=== PATIENT | male | born 1960 | race Caucasian/White ===

== ENCOUNTER → 2021-11-03 13:52 | Outpatient (BNVA) | payer MEDICARE, MEDICAID, SELFPAY | PROVIDERS: Family Provider Nurse Practitioner Family; PCP Nurse Practitioner Family; Referring Provider Nurse Practitioner Family; Visit Provider Internal Medicine | DX: E11.59 Type 2 diabetes mellitus with other circulatory complications (principal); E11.40 Type 2 diabetes mellitus with diabetic neuropathy, unspecified; E78.2 Mixed hyperlipidemia; I25.10 Atherosclerotic heart disease of native coronary artery without angina pectoris; F17.210 Nicotine dependence, cigarettes, uncomplicated; Z79.84 Long term (current) use of oral hypoglycemic drugs; Z79.4 Long term (current) use of insulin | CPT/HCPCS: 99204 ==

== ENCOUNTER → 2022-01-19 10:27 | Outpatient (BNVA) | payer MEDICARE, OTHER, MEDICAID, SELFPAY | PROVIDERS: Family Provider Nurse Practitioner Family; PCP Nurse Practitioner Family; Visit Provider Internal Medicine Critical Care Medicine | DX: J44.9 Chronic obstructive pulmonary disease, unspecified (principal); F17.210 Nicotine dependence, cigarettes, uncomplicated; F31.9 Bipolar disorder, unspecified | CPT/HCPCS: 99204 ==

== ENCOUNTER → 2022-02-02 10:16 | Outpatient (BNVA) | payer MEDICARE, OTHER, MEDICAID, SELFPAY | PROVIDERS: Family Provider Nurse Practitioner Family; PCP Nurse Practitioner Family; Visit Provider Internal Medicine | DX: E11.40 Type 2 diabetes mellitus with diabetic neuropathy, unspecified (principal); E11.59 Type 2 diabetes mellitus with other circulatory complications; E11.649 Type 2 diabetes mellitus with hypoglycemia without coma; I25.10 Atherosclerotic heart disease of native coronary artery without angina pectoris; E78.2 Mixed hyperlipidemia; Z79.4 Long term (current) use of insulin; Z79.84 Long term (current) use of oral hypoglycemic drugs; F17.210 Nicotine dependence, cigarettes, uncomplicated | CPT/HCPCS: 99214 ==

== ENCOUNTER 2022-03-10 09:10 | Outpatient (CLI) | payer MEDICARE, OTHER, MEDICAID, SELFPAY ==
--- NOTE | 2022-03-10 10:00 | CT_ITS ---
WS: [id number] LDCT LUNG CANCER SCREENING TECHNIQUE: Noncontrast CT of the chest with coronal and sagittal reformatted images. CLINICAL INFORMATION: Lung cancer screening COMPARISON: None. DLP: 81.39 mGy.cm DIvol: Mean CTDIvol: 1.60 (mGy) All CT scans at [facility] use at least one of these dose optimization techniques: automat ed exposure control; mA and/or kV adjustment per patient size (includes targeted exams where dose is matched to clinical indication); or iterative reconstruction. FINDINGS: Moderate to advanced chronic emphysematous changes. A few calcified granulomas. Patchy infiltrates in the LEFT greater than RIGHT lower lobes. Recommend correlation for pneumonitis. No focal consolidati on pleural fluid. Normal caliber thoracic aorta. No mediastinal or hilar lymphadenopathy. No axillary lymphadenopathy. Normal GE junction. Adrenal glands are normal. Hypertrophic changes thoracic spine. Mild thoracic cur ve. Partially visualized hepatomegaly. Adrenal glands are normal. CT/CT lung screening [id number] IMPRESSION: Small amount of patchy nodular infiltrates LEFT greater than RIGHT lung bases. Correlation for infectious or inflammatory pneumonitis. LUNG-RADS: 2S-Benign Appearance or Behavior with Significant Findings FOLLOW UP: 12 Month: Continue annual screening with LDCT
== END 2022-03-10 09:11 | disposition home or self-care (01) ==
LOC: RAD 09:11
PROVIDERS: Family Provider Nurse Practitioner Family; PCP Nurse Practitioner Family; Visit Provider Internal Medicine Critical Care Medicine
DX: Z12.2 Encounter for screening for malignant neoplasm of respiratory organs (principal); F17.210 Nicotine dependence, cigarettes, uncomplicated
CPT/HCPCS: 71271

== ENCOUNTER 2022-03-15 08:22 | Outpatient (CLI) | payer MEDICARE, OTHER, MEDICAID, SELFPAY | END 2022-03-15 08:23 | disposition home or self-care (01) | LOC: RT 08:22 | PROVIDERS: PCP Nurse Practitioner Family; Visit Provider Internal Medicine Critical Care Medicine | DX: Z12.2 Encounter for screening for malignant neoplasm of respiratory organs (principal); F17.210 Nicotine dependence, cigarettes, uncomplicated | CPT/HCPCS: 94060; 94729; J7613 ==

== ENCOUNTER 2022-04-03 18:29 | Emergency (ER) | payer MEDICARE, OTHER, MEDICAID, SELFPAY ==
[2022-04-03 18:33] VITALS: BP 163/85; PULSE 101; RESP 20; TEMP 38.7; O2SAT 91; BMI 34.5
--- NOTE | 2022-04-03 19:13 | ED_ITS ---
HPI - SOB/Dyspnea General: Chief Complaint: Fever Stated Complaint: SOB Time Seen by Provider: 04/03/22 19:11 Source: patient Mode of arrival: ambulatory Limitations: no limitations History of Present Illness: HPI Narrative: See nursing assessment. Patient states he has had a chronic cough for about a month. States cough is productive of clear sputum. Started running fever today. States he has a occasional headache from coughing. He reports that he took albuterol nebulizer prior to arrival. He has not taken anything for his fever. Past medical history includes coronary artery disease, type 2 diabetes mellitus insulin-dependent. Patient has chronic bronchitis. Patient is allergic to Zyprexa, nitrous oxide, adhesive tape. Associated symptoms: Reports chest congestion and fever(s); Deny abdominal pain, chest pain, nausea, palpitations or vomiting Review of Systems Const: Reports: fever(s) and body aches; Denies: chills Eyes: Denies: change in vision ENMT: Denies: throat pain Card: Denies: chest pain or palpitations Resp: Reports: dyspnea, productive cough (Clear sputum), wheezing and chest congestion GI: Denies: abdominal pain, nausea or vomiting : Denies: flank pain Musc: Denies: neck pain or back pain Skin/Breast: Denies: rash or pruritus Neuro: Reports: headache(s) (Frontal headache from coughing.); Denies: numbness in extremities Psych: Denies: anxiety Kenneth/Lymph: Denies: enlarged lymph nodes PFSH ED PFSH: Medical History Arthritis of multiple sites Bipolar affective disorder Cervical stenosis of spinal canal Chronic hyponatremia Chronic obstructive pulmonary disease, unspecified Cigarette nicotine dependence with nicotine-induced disorder Essential (primary) hypertension Fibromyalgia GERD without esophagitis Macrocytosis Male erectile dysfunction, unspecified Multilevel degenerative disc disease DEBI on CPAP Surgical History History of rotator cuff surgery bilateral Hx of release of tendon right index finger Family History Father , [place] CAD (coronary artery disease) Mother CAD (coronary artery disease) Dementia Alzheimers Unknown Hypertension first degree relatives Social History Smoking and tobacco status: current every day smoker (1.5 ppd) cigarettes Packs smoked per day: 1.5 Years cigarettes smoked: 48 [ Other cigarette details: HX of 2-5 ppd] Alcohol intake: current Lives independently: Yes Household members: spouse and children Marital status: Current occupation: disabled Pets and animals: Yes Pets & animals: dog(s) History of recent travel: No Current gender identity: Male Physical Exam Const: COMMON NORMALS: no acute distress, patient oriented x3, no limitations and well nourished GENERAL APPEARANCE: cooperative OTHER: Temperature 101.7 HENMT: COMMON NORMALS: normocephalic and atraumatic HEAD & SCALP: normocephalic and atraumatic FACE & SINUS: normal facial exam Eye: COMMON NORMALS: EOMs intact bilaterally Neck/C-Spine: COMMON NORMALS: full ROM, no lymphadenopathy, supple and no meningeal signs GENERAL: Yes normal visual inspection Lymph: LYMPHATIC: no lymphadenopathy noted Chest: COMMONS NORMALS: normal inspection of the chest and normal palpation of entire chest wall CHEST: No Ecchymosis present and No rash Resp: COMMON NORMALS: normal respiratory effort and No retractions EFFORT & INSPECTION: No respiratory distress OTHER: Mild expiratory wheezes bilaterally. Mild rhonchi in the bases bilaterally. Cardio: COMMON NORMALS: regular rate, regular rhythm and Peripheral pulses 2+ throughout JUGULAR VENOUS DISTENTION: no JVD RATE: regular rate RHYTHM: regular rhythm PERIPHERAL PULSES: Peripheral pulses 2+ throughout GI: COMMON NORMALS: Normal to inspection, nondistended, normoactive bowel sounds present and non-tender : COMMON NORMALS: Yes no CVA tenderness BLADDER/KIDNEY EXAM: Yes no CVA tenderness Back/Pelvis: COMMON NORMALS: no CVA tenderness Extremity: COMMON NORMALS: normal to inspection, full ROM and capillary refill normal Neuro: COMMON NORMALS: patient oriented x3, CN's II-XII intact bilaterally, no focal motor deficits and no sensory deficits noted MENINGEAL SIGNS: Yes no meningeal signs Psych: COMMON NORMALS: mental status grossly normal and Normal thought process present THOUGHT PROCESS: Normal thought process present Skin: COMMON NORMALS: no rashes or lesions noted and no wounds GENERAL SKIN EXAM: no rashes or lesions noted Course Vital Signs: Vital signs: Vital Signs Temperature 101.7 F H 04/03/22 18:33 Pulse Rate 101 H 04/03/22 20:47 Respiratory Rate 18 04/03/22 20:47 Blood Pressure 138/79 04/03/22 20:47 Pulse Oximetry 98 04/03/22 20:47 Oxygen Delivery Me thod 04/03/22 20:47 MDM - SOB/Dyspnea Medical Decision Making Pneumonia versus influenza versus COVID Lactic acid is normal. 2019: bp 136/79; pulse oximetry 92% on room air. COVID and flu test were negative. Chest x-ray essentially normal. Patient likely having COPD exacerbation with associated acute bronchitis. Due to his fever, will place patient on IV antibiotics today. Patient offered admission due to his ox saturation in the low 90s. Patient declined admission and wants t o go home. He states he has plenty medication for his nebulizer. He agreed to hold on smoking. Lab Data 04/03/22 19:35 04/03/22 19:35 Labs/Radiology: Radiology Impressions Chest X-Ray 04/03/22 19:21 IMPRESSION: 1. No acute cardiopulmonary process. 2. Incidental/nonacute findings are listed in the report. Laboratory Results WBC 12.2 10^3/uL (4.0-10.0) H 04/03/22 19:35 RBC 4.90 10^6/uL (4.1-5.3) 04/03/22 19:35 Hgb 15.8 g/dL (11.7-16.6) 04/03/22 19:35 Hct 45.7 % (42.0-52.0) 04/03/22 19:35 MCV 93.3 fl (80-94) 04/03/22 19:35 MCH 32.2 pg (28.0-34.0) 04/03/22 19:35 MCHC 34.6 g/dL (30.0-36.0) 04/03/22 19:35 RDW 13.2 % (12.1-15.1) 04/03/22 19:35 Plt Count 214 10^3/cmm (130-400) 04/03/22 19:35 MPV 8.0 fL (7.4-10.4) 04/03/22 19:35 Neut % (Auto) 79.9 % 04/03/22 19:35 Lymph % (Auto) 10.8 % 04/03/22 19:35 [place] % (Auto) 7.3 % 04/03/22 19:35 Eos % (Auto) 0.7 % 04/03/22 19:35 Baso % (Auto) 0.4 % 04/03/22 19:35 Neut # (Auto) 9.74 10^3/uL (1.8-7.7) H 04/03/22 19:35 Lymph # (Auto) 1.3 10^3/uL (0.8-4.8) 04/03/22 19:35 [place] # (Auto) 0.9 10^3/uL (0.2-0.9) 04/03/22 19:35 Eos # (Auto) 0.1 10^3/uL (0.0-0.8) 04/03/22 19:35 Baso # (Auto) 0.1 10^3/uL (0.0-0.1) 04/03/22 19:35 Nucleated RBC % (auto) 0 % 04/03/22 19:35 Nucleated RBCs # 0.0 /100WBC 04/03/22 19:35 Sodium 127 mmol/L (136-145) L 04/03/22 19:35 Potassium 3.8 mmol/L (3.5-5.1) 04/03/22 19:35 Chloride 93 mmol/L (98-107) L 04/03/22 19:35 Carbon Dioxide 23 mmol/L (22-29) 04/03/22 19:35 Anion Gap 14.8 (5-19) 04/03/22 19:35 BUN 8 mg/dL (8-23) 04/03/22 19:35 Creatinine 0.8 mg/dL (0.7-1.2) 04/03/22 19:35 GFR Calculation 98.6 mL/min (90-130) 04/03/22 19:35 Glucose 231 mg/dL (65-115) H 04/03/22 19:35 Calculated Osmolality 270 mOsm/kg (285-295) L 04/03/22 19:35 Lactic Acid 1.6 mmol/L (0.5-2.2) 04/03/22 19:35 Calcium 9.5 mg/dL (8.5-10.5) 04/03/22 19:35 Influenza Type A Ag negative (Negative) 04/03/22 19:35 Influenza Type B Ag negative (Negative) 04/03/22 19:35 SARS-CoV-2 Ag (Rapid) Negative (Negative) 04/03/22 19:35 Imaging Data CXR: My impression: Nothing acute. No evidence of pneumonia. Radiologist's impression: PROCEDURE INFORMATION: Exam: XR Chest Exam date and time: 04/03/2022 7:47 PM Age: 61 years old Clinical indication: Dyspnea; Additional info: Dyspnea; Fever TECHNIQUE: Imaging protocol: Radiologic exam of the chest. Views: 1 view. COMPARISON: CR XR chest 2V* [id number] 04/01/2018 2:50 PM FINDINGS: Lungs: No focal consolidation. No pulmonary edema. Stable calcified granuloma in the the right upper lobe. Pleural spaces: No pleural effusion. No pneumothorax. Heart/Mediastinum: Stable mild enlargement of the cardiac silhouette. Mediastinal contours are unremarkable. Bones/joints: Unremarkable for age. XR/XR chest 1V portable [id number] IMPRESSION: 1. No acute cardiopulmonary process. 2. Incidental/nonacute findings are listed in the report. ? Dictated By: Blanca Johnson MD Signed By: Blanca Johnson MD Signed Date/Time: 04/03/221954 Other Data Patient: Ryne Singleton Unit #: [id number] : 1960 Age/Sex: 61 / M ADM Date: 03/10/22 Loc: [facility] Room/Bed: Attending Dr: Terence Fried MD Ordering Provider/Ordering MD: Terence Fried MD Date of Service: 03/10/22 Procedure(s): CT lung screening [id number] Accession Number(s): [id number] Report Number: [id number] WS: [id number] LDCT LUNG CANCER SCREENING TECHNIQUE: Noncontrast CT of the chest with coronal and sagittal reformatted images. CLINICAL INFORMATION: Lung cancer screening COMPARISON: None. DLP: 81.39 mGy.cm DIvol: Mean CTDIvol: 1.60 (mGy) All CT scans at [facility] use at least one of these dose optimization techniques: automated exposure control; mA and/or kV adjustment per patient size (includes targeted exams where dose is matched to clinical indication); or iterative reconstruction. FINDINGS: Moderate to advanced chronic emphysematous changes. A few calcified granulomas. Patchy infiltrates in the LEFT greater than RIGHT lower lobes. Recommend correlation for pneumonitis. No focal consolidation pleural fluid. Normal caliber thoracic aorta. No mediastinal or hilar lymphadenopathy. No axillary lymphadenopathy. Normal GE junction. Adrenal glands are normal. Hypertrophic changes thoracic spine. Mild thoracic curve. Partially visualized hepatomegaly. Adrenal glands are normal. CT/CT lung screening [id number] IMPRESSION: Small amount of patchy nodular infiltrates LEFT greater than RIGHT lung bases. Correlation for infectious or inflammatory pneumonitis. ? LUNG-RADS: 2S-Benign Appearance or Behavior with Significant Findings ? FOLLOW UP: 12 Month: Continue annual screening with LDCT ? ? Dictated By: Marcial Bailey MD Signed By: Marcial Bailey MD Signed Date/Time: 03/10/22 1027 Discharge Plan Discharge Patient Disposition: Home Clinical Impression: Shortness of breath Fever Qualifiers: Fever type: unspecified Qualified Code(s): R50.9 - Fever, unspecified Condition: Stable Prescriptions: New Zithromax Z-Jt 250 mg tablet See Rx Instructions PO .COMPLEX Qty: 6 0RF Rx Instructions: take 500 mg today (day 1), then 250 mg for 4 days (days 2-5) cephalexin 500 mg capsule 500 mg PO QID 7 Days Qty: 28 0RF Rx Instructions: for infection No Action albuterol sulfate 2.5 mg /3 mL (0.083 %) solution for nebulization 2.5 mg INHALATION Q4H PRN Daliresp 500 mcg tablet 500 mcg PO DAILY omeprazole 40 mg capsule,delayed release(DR/EC) 40 mg PO DAILY (DME) pen needle, diabetic [Unifine Pentips] 32 gauge x 1/4 needle See Rx Instructions .ROUTE .MEDSUPPLY Qty: 50 Rx Instructions: As directed aripiprazole [Abilify] 5 mg tablet 10 mg PO DAILY metformin 850 mg tablet 850 mg PO DAILY pregabalin [Lyrica] 150 mg capsule 150 mg PO .four times daily albuterol 90 mcg/actuation aerosol INHALATION .2 puff QID PRN insulin lispro [Humalog KwikPen Insulin] 100 unit/mL insulin pen See Rx Instructions SUBCUT TID Rx Instructions: Sliding scale 20-40 units SUBCUT three times daily; guaifenesin [Mucinex] 600 mg tablet extended release 12hr 600 mg PO BID bisoprolol fumarate 5 mg tablet 5 mg PO DAILY prasugrel [Effient] 10 mg tablet 10 mg PO DAILY aspirin 81 mg tablet,delayed release (DR/EC) 81 mg PO DAILY montelukast [Singulair] 10 mg tablet 10 mg PO DAILY sertraline [Zoloft] 100 mg tablet 150 mg PO DAILY Eliquis 2.5 mg tablet 2.5 mg PO BID (DME) Dexcom G6 Marketing Strategy Manager Misc See Rx Instructions .Route Qty: 1 0RF Rx Instructions: Check BS 4-6 times a day. (DME) Dexcom G6 Sensor Device See Rx Instructions .Route Qty: 9 3RF Rx Instructions: Change every 10 days. (DME) Dexcom G6 Transmitter Device See Rx Instructions .Route Qty: 3 3RF Rx Instructions: Change every 90 days. Tresiba U-100 Insulin 100 unit/mL solution 55 unit SUBCUT DAILY losartan 25 mg tablet 25 mg PO DAILY rosuvastatin 20 mg tablet 20 mg PO DAILY cinnamon bark [Cinnamon] 500 mg capsule 2,000 mg PO DAILY Trelegy Ellipta 100-62.5-25 mcg blister with device 1 inh inhalation DAILY 60 Days Qty: 60 3RF doxycycline hyclate 100 mg tablet 100 mg PO BID 7 Days Qty: 14 0RF Discharge Orders: Discharge ED (Routine); Ordered 04/03/22 Ordered By: Lester Castillo Referrals: Angelia Swenson APN [Primary Care Provider] - 1-3 days Discharge Activity: Increase activity as tolerated Patient Instructions: Acute Bronchitis (ED), COPD (Chronic Obstructive Pulmon katya Disease) (ED), Bronchospasm (ED) Activity Restrictions/Additional Instructions: Start oral antibiotics Zithromax and cephalexin tomorrow. Avoid smoking. Use albuterol nebulizer as needed at home. Coding Level of Care Code ED Director Of Emergency Nursing for Ney Hernandez History Comprehensive Exam Comprehensive Medical Decision Making Moderate Complexity
--- NOTE | 2022-04-03 19:21 | XRR_ITS ---
PROCEDURE INFORMATION: Exam: XR Chest Exam date and time: 04/03/2022 7:47 PM Age: 61 years old Clinical indication: Dyspnea; Additional info: Dyspnea; Fever TECHNIQUE: Imaging protocol: Radiologic exam of the chest. Views: 1 view. COMPARISON: CR XR chest 2V* [id number] 04/01/2018 2:50 PM FINDINGS: Lungs: No focal consolidation. No pulmonary edema. Stable calcified granuloma in the the right upper lobe. Pleural spaces: No pleural effusion. No pneumothorax. Heart/Mediastinum: Stable mild enlargement of the cardiac silhouette. Mediastinal contours are unremarkable. Bones/joints: Unremarkable for age. XR/XR chest 1V portable [id number] IMPRESSION: 1. No acute cardiopulmonary process. 2. Incidental/nonacute findings are listed in the report.
[2022-04-03 19:25] VITALS: BP 138/76; PULSE 98; RESP 16; O2SAT 90
[2022-04-03 19:26] VITALS: PULSE 104; RESP 18; O2SAT 92
[2022-04-03] MEDS: albuterol 8 gm MDI 2 PUFF INHALATION (19:27)
[2022-04-03] MEDS: acetaminophen 500 mg Tablet 1000 MG PO (19:40)
[2022-04-03] MEDS: ketorolac 30 mg/mL INJ 10 MG IVP (19:41)
[2022-04-03 19:53] LABS: Basophils # 0.1 10^3/uL (0.0-0.1); Basophils % 0.4 %; Eosinophils # 0.1 10^3/uL (0.0-0.8); Eosinophils % 0.7 %; Hematocrit 45.7 % (42.0-52.0); Hemoglobin 15.8 g/dL (11.7-16.6); Lymphocytes # 1.3 10^3/uL (0.8-4.8); Lymphocytes % 10.8 %; Mean Corpuscular HGB Conc 34.6 g/dL (30.0-36.0); Mean Corpuscular Hemoglobin 32.2 pg (28.0-34.0); Mean Corpuscular Volume 93.3 fl (80-94); Monocytes # 0.9 10^3/uL (0.2-0.9); Monocytes % 7.3 %; Neutrophils # 9.74 10^3/uL (1.8-7.7); Neutrophils % 79.9 %; Nucleated Red Blood Cells % 0 %; Platelet Count 214 10^3/cmm (130-400); Red Cell Distribution Width 13.2 % (12.1-15.1); White Blood Count 12.2 10^3/uL (4.0-10.0)
[2022-04-03 20:02] LABS: Lactic Sepsis W/Reflex 1.6 mmol/L (0.5-2.2)
[2022-04-03 20:03] LABS: Anion Gap 14.8 (5-19); Blood Urea Nitrogen 8 mg/dL (8-23); Calcium 9.5 mg/dL (8.5-10.5); Carbon Dioxide 23 mmol/L (22-29); Chloride 93 mmol/L (98-107); Glomerular Filtration Rate 98.6 mL/min (90-130); Glucose 231 mg/dL (65-115); Osmolality Calculated 270 mOsm/kg (285-295); Potassium 3.8 mmol/L (3.5-5.1); Sodium 127 mmol/L (136-145)
[2022-04-03 20:43] LABS: Influenza A by IFA negative (Negative); Influenza B by IFA negative (Negative)
[2022-04-03 20:47] VITALS: BP 138/79; PULSE 101; RESP 18; O2SAT 98
[2022-04-03 20:55] LABS: SARS Covid-2 Antigen Negative (Negative)
[2022-04-03] MEDS: cefTRIAXone 1,000 MG in sodium chloride 0.9% (plus) 50 ML 100 MG IV (21:15)
[2022-04-03] MEDS: azithromycin 500 MG in sodium chloride 0.9% 250 ML 250 MG IV (21:35)
[2022-04-03 22:45] VITALS: BP 110/83; PULSE 89; RESP 16; O2SAT 92
== END 2022-04-03 22:54 | disposition home or self-care (01) ==
PROVIDERS: Emergency Provider Family Medicine; PCP Nurse Practitioner Family
DX: R50.9 Fever, unspecified (principal); R06.02 Shortness of breath; Z79.01 Long term (current) use of anticoagulants; Z79.84 Long term (current) use of oral hypoglycemic drugs; Z79.82 Long term (current) use of aspirin; Z79.4 Long term (current) use of insulin; Z20.822 Contact with and (suspected) exposure to COVID-19; J44.9 Chronic obstructive pulmonary disease, unspecified; I10 Essential (primary) hypertension; F17.210 Nicotine dependence, cigarettes, uncomplicated
CPT/HCPCS: 71045; 80048; 83605; 85025; 87040; 87426; 87804; 94640; 96374; 96375; 99285; J0456; J0696; J1885; J3535; J7050

== ENCOUNTER → 2022-05-04 08:41 | Outpatient (BNVA) | payer MEDICARE, MEDICAID, SELFPAY | PROVIDERS: PCP Nurse Practitioner Family; Visit Provider Internal Medicine | DX: E11.649 Type 2 diabetes mellitus with hypoglycemia without coma (principal); E11.59 Type 2 diabetes mellitus with other circulatory complications; E11.40 Type 2 diabetes mellitus with diabetic neuropathy, unspecified; Z79.84 Long term (current) use of oral hypoglycemic drugs; Z79.4 Long term (current) use of insulin; I25.10 Atherosclerotic heart disease of native coronary artery without angina pectoris; E78.2 Mixed hyperlipidemia | CPT/HCPCS: 99214 ==

== ENCOUNTER 2022-06-13 08:03 | Emergency (ER) | payer MEDICARE, MEDICAID, SELFPAY ==
[2022-06-13] VITALS (8 sets, daily range): BP systolic 132–153; BP diastolic 73–87; PULSE 85–92; RESP 19–25; TEMP 36.5; O2SAT 86–94
--- NOTE | 2022-06-13 08:08 | XR_ITS ---
WS: [id number] Exam: XR chest 1V portable [id number] Date/Time of Exam: 06/13/2022 8:17 AM Reason For Exam: dyspnea/cough There is plaque atelectasis in the right lower lobe. No consolidated infiltrates are seen. The lungs are fully expanded. Cardiomediastinal silhouette is unremarkable for technique. Bony elements are int act. Monitoring leads superimpose the chest. XR/XR chest 1V portable [id number] IMPRESSION: 1. No acute process noted. 2. Plaque atelectasis in the right base.
--- NOTE | 2022-06-13 08:11 | W.ED.CHESTPA ---
HPI - Chest Pain General: Chief Complaint: Shortness of Breath/Dyspnea Stated Complaint: SOB Time Seen by Provider: 06/13/22 08:07 Source: patient Mode of arrival: ambulatory History of Present Illness: 61-year-old male presents emergency room complaining of shortness of breath worsening for the last several days. He tells me he has a history of COPD and was prescribed oxygen several years ago usually runs it at 3 L reporting O2 sats of 85% on room air at home although here in the emergency room he is at 93 to 94% at rest without any oxygen. He states he was exposed to his who tested positive for RSV a week ago. He has had a minimally productive cough about at his baseline patient is a daily smoker (1 1/2 packs/day) and continues to be despite having been counseled otherwise he has severe COPD his last FEV1 on pulmonary functions in late 2021 was at 69%. He is getting some chest pain but is only associated with coughing at this point he has a history of poorly controlled diabetes mellitus coronary artery disease as well as the COPD. Patient is on apixaban as well. Pertinent past history: coronary artery disease and other (COPD.) Onset (ago): day(s) Timing of current episode: episodic Onset: other (With cough) Quality: sharp (When coughing) Relieving factors: nothing Exacerbating factors: nothing Associated symptoms: Reports dyspnea and fever(s); Deny abdominal pain, diaphoresis, leg edema, nausea, palpitations, sense of impending doom, syncope or vomiting Treatment prior to arrival: none Review of Systems Const: Reports: fever(s); Denies: chills, fatigue, malaise or diaphoresis ENMT: Denies: throat pain, ear or mastoid pain, nasal discharge or nasal congestion Card: Denies: palpitations or syncope Resp: Reports: dyspnea, productive cough and wheezing GI: Denies: abdominal pain, nausea or vomiting : Denies: flank pain, dysuria, urinary frequency or urinary urgency Skin/Breast: Denies: rash or pruritus PFS ED PFSH: Medical History (Updated 06/13/22 @ 09:18 by Bogdan Oseguera DO) Arthritis of multiple sites Bipolar affective disorder Cervical stenosis of spinal canal Chronic hyponatremia Chronic obstructive pulmonary disease, unspecified Cigarette nicotine dependence with nicotine-induced disorder Coronary artery disease due to type 2 diabetes mellitus Diabetes type 2, uncontrolled Essential (primary) hypertension Fibromyalgia GERD without esophagitis Hyperlipemia, mixed Macrocytosis Male erectile dysfunction, unspecified Multilevel degenerative disc disease DEBI on CPAP Does not use CPAP Surgical History History of rotator cuff surgery bilateral Hx of release of tendon right index finger Family History Father , [place] CAD (coronary artery disease) Mother CAD (coronary artery disease) Dementia Alzheimers Unknown Hypertension first degree relatives Social History Smoking and tobacco status: current every day smoker (1.5 ppd) cigarettes Packs smoked per day: 1.5 Years cigarettes smoked: 48 [ Other cigarette details: HX of 2-5 ppd] Alcohol intake: current Lives independently: Yes Household members: spouse and children Marital status: Current occupation: disabled Pets and animals: Yes Pets & animals: dog(s) Current gender identity: Male Physical Exam Const: GENERAL APPEARANCE: cooperative and comfortable ORIENTATION/CONSCIOUSNESS: Yes awake, Yes oriented to person, Yes oriented to place and Yes oriented to time HENMT: COMMON NORMALS: normocephalic, atraumatic and hearing grossly normal bilaterally HEAD & SCALP: normocephalic and atraumatic Resp: COMMON NORMALS: normal respiratory effort, No retractions, No use of accessory muscles and clear to auscultation bilaterally AUSCULTATION: clear to auscultation bilaterally and crackles Laterality: left (Base) Cardio: COMMON NORMALS: regular rate, regular rhythm and No murmurs present (Cardio) RATE: regular rate RHYTHM: regular rhythm GI: COMMON NORMALS: Soft to palpation and No hepatosplenomegaly present AUSCULTATION: Yes normoactive bowel sounds PALPATION: Yes Soft to palpation, No Tenderness to palpation present (GI), No Guarding due to palpation present (GI) and Yes No hepatosplenomegaly present Extremity: COMMON NORMALS: normal to inspection, capillary refill normal, no calf tenderness and no pedal edema GENERAL: Yes clubbing Neuro: SENSORIUM/ORIENTATION: Yes oriented to person, Yes oriented to place and Yes oriented to time Skin: COMMON NORMALS: no rashes or lesions noted GENERAL SKIN EXAM: no rashes or lesions noted Course Vital Signs: Vital signs: Vital Signs Temperature 97.7 F 06/13/22 08:13 Pulse Rate 86 06/13/22 09:00 Respiratory Rate 25 H 06/13/22 08:30 Blood Pressure 136/73 06/13/22 09:00 Pulse Oximetry 91 06/13/22 09:07 Oxygen Delivery Me thod 06/13/22 08:27 Oxygen Flow Rate 2 06/13/22 09:07 MDM - Chest Pain Medical Decision Making Chest pain only with coughing. EKG does not show anything acute laboratory test reviewed. Patient currently is on doxycycline there is no pneumonia no pneumothorax no other abnormality. At this point he is still smoking strongly discouraged continued smoking discussed that this will probably continue to get worse his blood gas is well compensated but with ambulation he desats and requires oxygen at 2 L/min. Ordered home oxygen again he will need portable so he can use it all the time. Follow-up with his primary care continue his other previously prescribed medications. Medical Records I reviewed the patient's medical records. Lab Data I reviewed the patient's lab results. 06/13/22 08:20 06/13/22 08:20 Radiology Impressions Chest X-Ray 06/13/22 08:08 IMPRESSION: 1. No acute process noted. 2. Plaque atelectasis in the right base. Laboratory Results WBC 11.3 10^3/uL (4.0-10.0) H 06/13/22 08:20 RBC 4.48 10^6/uL (4.1-5.3) 06/13/22 08:20 Hgb 13.9 g/dL (11.7-16.6) 06/13/22 08:20 Hct 41.5 % (42.0-52.0) L 06/13/22 08:20 MCV 92.6 fl (80-94) 06/13/22 08:20 MCH 31.0 pg (28.0-34.0) 06/13/22 08:20 MCHC 33.5 g/dL (30.0-36.0) 06/13/22 08:20 RDW 13.4 % (12.1-15.1) 06/13/22 08:20 Plt Count 408 10^3/cmm (130-400) H 06/13/22 08:20 MPV 7.9 fL (7.4-10.4) 06/13/22 08:20 Neut % (Auto) 73.4 % 06/13/22 08:20 Lymph % (Auto) 15.6 % 06/13/22 08:20 [place] % (Auto) 5.7 % 06/13/22 08:20 Eos % (Auto) 0.7 % 06/13/22 08:20 Baso % (Auto) 0.4 % 06/13/22 08:20 Neut # (Auto) 8.25 10^3/uL (1.8-7.7) H 06/13/22 08:20 Lymph # (Auto) 1.8 10^3/uL (0.8-4.8) 06/13/22 08:20 [place] # (Auto) 0.6 10^3/uL (0.2-0.9) 06/13/22 08:20 Eos # (Auto) 0.1 10^3/uL (0.0-0.8) 06/13/22 08:20 Baso # (Auto) 0.1 10^3/uL (0.0-0.1) 06/13/22 08:20 Nucleated RBC % (auto) 0 % 06/13/22 08:20 Nucleated RBCs # 0.0 /100WBC 06/13/22 08:20 Specimen Type Arterial 06/13/22 08:25 Sample Site Radial, left 06/13/22 08:25 ABG pH 7.43 (7.35-7.45) 06/13/22 08:25 ABG pCO2 37.3 mmHg (35-45) 06/13/22 08:25 ABG pO2 63.8 mmHg (80.0-100.0) L 06/13/22 08:25 ABG HCO3 24.5 mmol/L (22-26) 06/13/22 08:25 ABG O2 Saturation 93.7 06/13/22 08:25 ABG Base Excess 0.3 mmol/L (-2.0-2.0) 06/13/22 08:25 [place] Test Pos 06/13/22 08:25 A-a O2 Gradient 5.0 mmHg (5-10) 06/13/22 08:25 Hematocrit 43.6 % (42-52) 06/13/22 08:25 Hgb O2 Saturation 91.0 % (95-100) L 06/13/22 08:25 Carboxyhemoglobin 2.2 %THgb (0.4-20.1) 06/13/22 08:25 Methemoglobin 0.8 % (0.4-1.5) 06/13/22 08:25 Total Hemoglobin 14.2 g/dL (14-18) 06/13/22 08:25 Sodium 138.0 mmol/L (131-143) 06/13/22 08:25 Potassium 4.1 mmol/L (3.5-5.0) 06/13/22 08:25 Glucose 134.0 mg/dL (70-115) H 06/13/22 08:25 Ionized Calcium 1.2 mmol/L (1.1-1.4) 06/13/22 08:25 O2 Delivery Device None 06/13/22 08:25 FiO2 21.0 % 06/13/22 08:25 Heliarc Welder ID [email or web address] 06/13/22 08:25 Sodium 137 mmol/L (136-145) 06/13/22 08:20 Potassium 4.4 mmol/L (3.5-5.1) 06/13/22 08:20 Chloride 102 mmol/L (98-107) 06/13/22 08:20 Carbon Dioxide 20 mmol/L (22-29) L 06/13/22 08:20 Anion Gap 19.4 (5-19) H 06/13/22 08:20 BUN 7 mg/dL (8-23) L 06/13/22 08:20 Creatinine 0.7 mg/dL (0.7-1.2) 06/13/22 08:20 GFR Calculation 115.0 mL/min (90-130) 06/13/22 08:20 Glucose 156 mg/dL (65-115) H 06/13/22 08:20 Calculated Osmolality 285 mOsm/kg (285-295) 06/13/22 08:20 Calcium 8.8 mg/dL (8.5-10.5) 06/13/22 08:20 Total Bilirubin 0.3 mg/dL (0.15-1.2) 06/13/22 08:20 AST 33 U/L (0-40) 06/13/22 08:20 ALT 62 U/L (0-41) H 06/13/22 08:20 Alkaline Phosphatase 123 U/L (40-130) 06/13/22 08:20 Total Protein 6.5 g/dL (6.6-8.7) L 06/13/22 08:20 Albumin 3.4 g/dL (3.5-5.2) L 06/13/22 08:20 Globulin 3.1 g/dL (1.3-4.6) 06/13/22 08:20 Discharge Plan Discharge Patient Disposition: Home Clinical Impression: Acute exacerbation of chronic obstructive airways disease Condition: Stable Prescriptions: New prednisone 20 mg tablet 20 mg PO TID Qty: 15 0RF Rx Instructions: 1 p.o. 3 times daily x3 days, 1 p.o. twice daily x2 days, 1 p.o. daily x2 days albuterol sulfate 90 mcg/actuation HFA aerosol inhaler 2 inh INHALATION Q4H PRN (Reason: shortness of breath or wheezing) Qty: 18 0RF No Action albuterol sulfate 2.5 mg /3 mL (0.083 %) solution for nebulization 2.5 mg INHALATION Q4H PRN Daliresp 500 mcg tablet 500 mcg PO DAILY omeprazole 40 mg capsule,delayed release(DR/EC) 40 mg PO DAILY (DME) pen needle, diabetic [Unifine Pentips] 32 gauge x 1/4 needle See Rx Instructions .ROUTE .MEDSUPPLY Qty: 50 Rx Instructions: As directed aripiprazole [Abilify] 5 mg tablet 10 mg PO DAILY metformin 850 mg tablet 850 mg PO DAILY pregabalin [Lyrica] 150 mg capsule 150 mg PO .four times daily albuterol 90 mcg/actuation aerosol INHALATION .2 puff QID PRN insulin lispro [Humalog KwikPen Insulin] 100 unit/mL insulin pen See Rx Instructions SUBCUT TID Rx Instructions: Sliding scale 20-40 units SUBCUT three times daily; guaifenesin [Mucinex] 600 mg tablet extended release 12hr 600 mg PO BID bisoprolol fumarate 5 mg tablet 5 mg PO DAILY prasugrel [Effient] 10 mg tablet 10 mg PO DAILY aspirin 81 mg tablet,delayed release (DR/EC) 81 mg PO DAILY montelukast [Singulair] 10 mg tablet 10 mg PO DAILY sertraline [Zoloft] 100 mg tablet 150 mg PO DAILY Eliquis 2.5 mg tablet 2.5 mg PO BID (DME) Dexcom G6 Mobile Electronics Installer Misc See Rx Instructions .Route Qty: 1 0RF Rx Instructions: Check BS 4-6 times a day. (DME) Dexcom G6 Sensor Device See Rx Instructions .Route Qty: 9 3RF Rx Instructions: Change every 10 days. (DME) Dexcom G6 Transmitter Device See Rx Instructions .Route Qty: 3 3RF Rx Instructions: Change every 90 days. Tresiba U-100 Insulin 100 unit/mL solution 55 unit SUBCUT DAILY losartan 25 mg tablet 25 mg PO DAILY rosuvastatin 20 mg tablet 20 mg PO DAILY cinnamon bark [Cinnamon] 500 mg capsule 2,000 mg PO DAILY Trelegy Ellipta 100-62.5-25 mcg blister with device 1 inh inhalation DAILY 60 Days Qty: 60 3RF doxycycline hyclate 100 mg tablet 100 mg PO BID 7 Days Qty: 14 0RF Zithromax Z-Jt 250 mg tablet See Rx Instructions PO .COMPLEX Qty: 6 0RF Rx Instructions: take 500 mg today (day 1), then 250 mg for 4 days (days 2-5) Discharge Orders: Discharge ED (Routine); Ordered 06/13/22 Ordered By: Bogdan Oseguera Other Ambulatory Orders: DME: Oxygen (Order) Location: None Selected Ordered By: Bogdan Oseguera Patient Instructions: Opioid Safety, Pain Management Activity Restrictions/Additional Instructions: You were seen today for shortness of breath. Your blood gases showed that you are fairly well compensated from your COPD however you do require oxygen with ambulation. Recommend that you complete the course of doxycycline as previously started. You should use oxygen 24/ at least 2 L/min. Follow-up with your primary care doctor continue your other inhaled medications. If your symptoms worsen or change return Coding Level of Care Code ED Molecular Pathologist for Ney Hernandez
--- NOTE | 2022-06-13 08:13 | ECG_ITS ---
[facility] Test Date: 2022-06-13 Pat Name: Ryne Singleton Department: Room: Gender: Male Sap Hana Architect: : [id number] Requested By: Bogdan Sidhu Order Number: [id number] Brynn MD: Courtney Santamaria M.D. Measurements Intervals [place] Rate: 87 P: 52 LA: 164 QRS: 15 QRSD: 97 T: 32 QT: 381 QTc: 460 Interpretive Statements SINUS RHYTHM POSSIBLE RIGHT VENTRICULAR CONDUCTION DELAY [RSR (QR) IN V1/V2] SEPTAL MYOCARDIAL INFARCTION , PROBABLY OLD [40+ ms Q WAVE IN V1/V2] Compared to ECG 04/01/2018 14:13:36 Myocardial infarct finding now present Sinus tachycardia no longer present Electronically Signed On 06-13-2022 19:06:18 IP TECHNOLOGY TRANSACTIONS ATTORNEY by Courtney Santamaria M.D. [email or web address]
[2022-06-13] MEDS: ipratropium-albuterol 3 mL Neb INHALATION (08:27)
[2022-06-13 08:37] LABS: ABG PCO2 37.3 mmHg (35-45); ABG PH Result 7.43 (7.35-7.45); Arterial Blood Gas Hematocrit 43.6 % (42-52); Base Excess ABG 0.3 mmol/L (-2.0-2.0); Blood Gas Allen Test Pos; Blood Gas Sample Site Radial, left; Blood Gas Sample Type Arterial; Carboxyhemoglobin 2.2 %THgb (0.4-20.1); HCO3 ABG 24.5 mmol/L (22-26); Ionized Calcium Level - ABG 1.2 mmol/L (1.1-1.4); Methemoglobin 0.8 % (0.4-1.5); Oxygen Saturation ABG 93.7; PO2 ABG 63.8 mmHg (80.0-100.0); Potassium Level - ABG 4.1 mmol/L (3.5-5.0); Total Hemoglobin 14.2 g/dL (14-18)
[2022-06-13 08:39] LABS: Basophils # 0.1 10^3/uL (0.0-0.1); Basophils % 0.4 %; Eosinophils # 0.1 10^3/uL (0.0-0.8); Eosinophils % 0.7 %; Hematocrit 41.5 % (42.0-52.0); Hemoglobin 13.9 g/dL (11.7-16.6); Lymphocytes # 1.8 10^3/uL (0.8-4.8); Lymphocytes % 15.6 %; Mean Corpuscular HGB Conc 33.5 g/dL (30.0-36.0); Mean Corpuscular Volume 92.6 fl (80-94); Mean Platelet Volume 7.9 fL (7.4-10.4); Monocytes # 0.6 10^3/uL (0.2-0.9); Monocytes % 5.7 %; Neutrophils # 8.25 10^3/uL (1.8-7.7); Neutrophils % 73.4 %; Nucleated Red Blood Cells % 0 %; Platelet Count 408 10^3/cmm (130-400); Red Blood Count 4.48 10^6/uL (4.1-5.3); Red Cell Distribution Width 13.4 % (12.1-15.1); White Blood Count 11.3 10^3/uL (4.0-10.0)
[2022-06-13 08:56] LABS: Alanine Aminotransferase 62 U/L (0-41); Albumin Level 3.4 g/dL (3.5-5.2); Alkaline Phosphatase 123 U/L (40-130); Anion Gap 19.4 (5-19); Aspartate Amino Transferase 33 U/L (0-40); Blood Urea Nitrogen 7 mg/dL (8-23); Calcium 8.8 mg/dL (8.5-10.5); Carbon Dioxide 20 mmol/L (22-29); Chloride 102 mmol/L (98-107); Creatinine Clr Calc Pharmacy 147.4044; Globulin 3.1 g/dL (1.3-4.6); Glucose 156 mg/dL (65-115); Osmolality Calculated 285 mOsm/kg (285-295); Potassium 4.4 mmol/L (3.5-5.1); Sodium 137 mmol/L (136-145); Total Bilirubin 0.3 mg/dL (0.15-1.2); Total Protein 6.5 g/dL (6.6-8.7)
[2022-06-13 09:43] LABS: Glucose Point of Care 96 mg/dL (70-110)
== END 2022-06-13 09:55 | disposition home or self-care (01) ==
PROVIDERS: Emergency Provider Family Medicine
DX: J44.1 Chronic obstructive pulmonary disease with (acute) exacerbation (principal); Z79.4 Long term (current) use of insulin; Z79.84 Long term (current) use of oral hypoglycemic drugs; Z79.82 Long term (current) use of aspirin; Z79.01 Long term (current) use of anticoagulants; J44.9 Chronic obstructive pulmonary disease, unspecified; I25.10 Atherosclerotic heart disease of native coronary artery without angina pectoris; E11.9 Type 2 diabetes mellitus without complications; I10 Essential (primary) hypertension; E78.2 Mixed hyperlipidemia; F17.210 Nicotine dependence, cigarettes, uncomplicated
CPT/HCPCS: 36416; 36600; 71045; 80051; 80053; 82330; 82805; 82962; 85025; 93005; 94640; 99285

== ENCOUNTER → 2022-07-20 08:55 | Outpatient (BNVA) | payer MEDICARE, MEDICAID, SELFPAY | PROVIDERS: PCP Family Medicine; Visit Provider Internal Medicine Pulmonary Disease | DX: J44.9 Chronic obstructive pulmonary disease, unspecified (principal); R06.02 Shortness of breath; F17.210 Nicotine dependence, cigarettes, uncomplicated; Z91.09 Other allergy status, other than to drugs and biological substances; F31.9 Bipolar disorder, unspecified | CPT/HCPCS: 99214 ==

== ENCOUNTER → 2022-08-09 11:46 | Outpatient (BNVA) | payer MEDICARE, OTHER, SELFPAY | PROVIDERS: PCP Family Medicine; Visit Provider Internal Medicine | DX: E11.649 Type 2 diabetes mellitus with hypoglycemia without coma (principal); E11.59 Type 2 diabetes mellitus with other circulatory complications; E11.40 Type 2 diabetes mellitus with diabetic neuropathy, unspecified; Z79.4 Long term (current) use of insulin; Z79.84 Long term (current) use of oral hypoglycemic drugs; I25.10 Atherosclerotic heart disease of native coronary artery without angina pectoris; E78.2 Mixed hyperlipidemia | CPT/HCPCS: 99214 ==

== ENCOUNTER 2022-09-22 06:00 | Outpatient (RCR) | payer MEDICARE, OTHER, MEDICAID, SELFPAY ==
--- NOTE | 2022-09-22 16:11 | PC.PULMREH ---
Patient and spouse attended [place]/PT Education Class.
== END 2022-10-21 23:59 | disposition home or self-care (01) ==
LOC: TPT 06:00
PROVIDERS: Visit Provider Internal Medicine Pulmonary Disease
DX: J44.9 Chronic obstructive pulmonary disease, unspecified (principal)
CPT/HCPCS: 97110; 97163

== ENCOUNTER 2022-10-05 06:53 | Outpatient (CLI) | payer MEDICARE, OTHER, MEDICAID, SELFPAY ==
[2022-10-05 07:17] VITALS: PULSE 93; RESP 20; O2SAT 96
[2022-10-05] MEDS: albuterol 2.5 mg/3 mL Neb INHALATION (07:17)
[2022-10-05 07:21] VITALS: PULSE 90
== END 2022-10-05 06:54 | disposition home or self-care (01) ==
LOC: RT 06:54
PROVIDERS: Visit Provider Internal Medicine Pulmonary Disease
DX: R06.02 Shortness of breath (principal)
CPT/HCPCS: 94060; 94618; 94729; J7613

== ENCOUNTER → 2022-10-10 13:17 | Outpatient (BNVA) | payer MEDICARE, OTHER, MEDICAID, SELFPAY | PROVIDERS: Visit Provider Internal Medicine Pulmonary Disease | DX: R06.02 Shortness of breath (principal); T78.40XA Allergy, unspecified, initial encounter | CPT/HCPCS: 36415; 82785; 85025; 86003; 99214 ==

== ENCOUNTER 2022-10-22 06:00 | Outpatient (RCR) | payer MEDICARE, OTHER, MEDICAID, SELFPAY | END 2022-11-21 23:59 | disposition home or self-care (01) | LOC: TPT 06:00 | PROVIDERS: PCP Family Medicine; Visit Provider Internal Medicine Pulmonary Disease | DX: J44.9 Chronic obstructive pulmonary disease, unspecified (principal) | CPT/HCPCS: 97110 ==

== ENCOUNTER → 2022-11-15 10:56 | Outpatient (BNVA) | payer MEDICARE, OTHER, MEDICAID, SELFPAY | PROVIDERS: PCP Family Medicine; Visit Provider Internal Medicine | DX: E11.59 Type 2 diabetes mellitus with other circulatory complications (principal); E11.649 Type 2 diabetes mellitus with hypoglycemia without coma; I25.10 Atherosclerotic heart disease of native coronary artery without angina pectoris; E78.2 Mixed hyperlipidemia; Z79.84 Long term (current) use of oral hypoglycemic drugs; Z79.4 Long term (current) use of insulin | CPT/HCPCS: 99214 ==

== ENCOUNTER → 2022-11-23 10:49 | Outpatient (BNVA) | payer MEDICARE, OTHER, MEDICAID, SELFPAY | PROVIDERS: PCP Family Medicine; Visit Provider Otolaryngology | DX: R51.9 Headache, unspecified (principal); G89.29 Other chronic pain; M26.623 Arthralgia of bilateral temporomandibular joint; F17.210 Nicotine dependence, cigarettes, uncomplicated | CPT/HCPCS: 99203 ==

== ENCOUNTER 2023-04-18 08:40 | Outpatient (CLI) | payer MEDICARE, OTHER, SELFPAY ==
--- NOTE | 2023-04-18 09:00 | CT_ITS ---
WS: [id number] LDCT LUNG CANCER SCREENING TECHNIQUE: Noncontrast CT of the chest with coronal and sagittal reformatted images. CLINICAL INFORMATION: F17.210 - Nicotine dependence, cigarettes, uncomplicated COMPARISON: None. DLP: 103.27 mGy.cm DIvol: Mean CTDIvol: 2.20 (mGy) All CT scans at [facility] use at least one of these dose optimization techniques: automat ed exposure control; mA and/or kV adjustment per patient size (includes targeted exams where dose is matched to clinical indication); or iterative reconstruction. FINDINGS: Advanced chronic emphysematous changes. Previously described patchy infiltrates in the LEFT lower lob e have resolved. 6 mm nodule RIGHT lower lobe appears new from previous. Calcified granuloma RIGHT upper lobe. Aortic calcification. Normal caliber thoracic aorta. Coronary c alcification. No mediastinal or hilar lymphadenopathy. No axillary lymphadenopathy. Adrenal glands are normal. Normal GE junction. Partially visualized hepatomegaly. Hypertrophic change s thoracic spine. Mild thoracic curve. IMPRESSION: CT/CT lung screening [id number] LUNG-RADS: 2-Benign Appearance or Behavior FOLLOW UP: 12 Month: Continue annual screening with LDCT
== END 2023-04-18 08:41 | disposition home or self-care (01) ==
LOC: RAD 08:41
PROVIDERS: PCP Family Medicine; Visit Provider Internal Medicine Pulmonary Disease
DX: Z12.2 Encounter for screening for malignant neoplasm of respiratory organs (principal); F17.210 Nicotine dependence, cigarettes, uncomplicated
CPT/HCPCS: 71271

== ENCOUNTER → 2023-06-12 10:44 | Outpatient (BNVA) | payer MEDICARE, OTHER, MEDICAID, SELFPAY | PROVIDERS: PCP Family Medicine; Visit Provider Internal Medicine | DX: E11.649 Type 2 diabetes mellitus with hypoglycemia without coma (principal); E11.59 Type 2 diabetes mellitus with other circulatory complications; I25.10 Atherosclerotic heart disease of native coronary artery without angina pectoris; E78.2 Mixed hyperlipidemia; Z79.4 Long term (current) use of insulin; Z79.84 Long term (current) use of oral hypoglycemic drugs | CPT/HCPCS: 99214 ==

== ENCOUNTER → 2024-01-10 13:48 | Outpatient (BNVA) | payer MEDICARE, OTHER, MEDICAID, SELFPAY | PROVIDERS: PCP Family Medicine; Visit Provider Internal Medicine Critical Care Medicine | DX: R06.09 Other forms of dyspnea (principal); J45.51 Severe persistent asthma with (acute) exacerbation; J82.83 Eosinophilic asthma; J43.2 Centrilobular emphysema; F17.200 Nicotine dependence, unspecified, uncomplicated; E66.09 Other obesity due to excess calories; Z68.32 Body mass index [BMI] 32.0-32.9, adult; R29.898 Other symptoms and signs involving the musculoskeletal system; F17.210 Nicotine dependence, cigarettes, uncomplicated; Z71.6 Tobacco abuse counseling; Z71.89 Other specified counseling | CPT/HCPCS: 99214 ==

== ENCOUNTER → 2024-03-25 09:08 | Outpatient (BNVA) | payer MEDICARE, OTHER, MEDICAID, SELFPAY | PROVIDERS: PCP Family Medicine; Visit Provider Internal Medicine | DX: E11.649 Type 2 diabetes mellitus with hypoglycemia without coma (principal); E78.2 Mixed hyperlipidemia; E11.59 Type 2 diabetes mellitus with other circulatory complications; I25.10 Atherosclerotic heart disease of native coronary artery without angina pectoris; Z79.4 Long term (current) use of insulin; Z79.84 Long term (current) use of oral hypoglycemic drugs | CPT/HCPCS: 99214 ==